=== PATIENT | female | born 1960 | race Asian ===

== ENCOUNTER 2017-02-24 12:36 | Emergency (ER) | payer BC ==
[~2017-02-24] VITALS: Ht 162.6 cm; Wt 57.6 kg
[2017-02-24 12:48] VITALS: BP 165/78
--- NOTE | 2017-02-24 12:48 | NUR ---
RIGHT SIDED FACIAL AND ARM NUMBNESS SINCE THIS AM. GOWNED PT . PLACED ON MONITOR. AWAITING MD ORDER
== END 2017-02-24 13:23 | disposition home or self-care (01) ==
LOC: ER 12:38
DX: F41.9 Anxiety disorder, unspecified (principal); E11.9 Type 2 diabetes mellitus without complications; I10 Essential (primary) hypertension; F32.9 Major depressive disorder, single episode, unspecified
CPT/HCPCS: 99281; A4606; Z7610; Z7502